=== PATIENT | male | born 1975 | race Two or more races ===

== ENCOUNTER 2020-11-03 10:03 | Outpatient (REF) | payer OTHER, SELFPAY ==
--- NOTE | ~2020-11-03 | MR_ITS ---
MR ANGIOGRAPHY BRAIN WITHOUT CONTRAST CLINICAL INFORMATION: Family history of brain aneurysms. COMPARISON: MRA head 07/06/2018. TECHNIQUE: A noncontrast [id number]-nd-[id number] MRA of the head is obtained. Vascular post-processing, including 2-dimensional and 3-dimensional reformatted images were created and reviewed on an independent workstation under concurrent physician supervision. Stenoses are graded per criteria similar to NASCET. FINDINGS: The anterior and posterior intracranial arterial circulations are normal in caliber. No significant arterial stenoses and no acute arterial occlusions. No aneurysms and no high flow vascular malformations. MR/MR angio head wo con IMPRESSION: Unremarkable MRA of the head.
== END 2020-11-03 10:04 | disposition home or self-care (01) ==
LOC: HO.MRI 10:03
PROVIDERS: PCP Internal Medicine; Visit Provider Internal Medicine
DX: Z13.0 Encounter for screening for diseases of the blood and blood-forming organs and certain disorders involving the immune mechanism (principal); Z82.49 Family history of ischemic heart disease and other diseases of the circulatory system
CPT/HCPCS: 70544

== ENCOUNTER → 2021-02-09 09:03 | Outpatient (BNVA) | payer OTHER, SELFPAY | PROVIDERS: PCP Internal Medicine; Referring Provider Internal Medicine; Visit Provider Surgery ==

== ENCOUNTER 2021-03-09 08:04 | Outpatient (REF) | payer OTHER, SELFPAY ==
[2021-03-09 08:12] VITALS: BP 125/81; PULSE 68; RESP 16; TEMP 36.6; O2SAT 98
[2021-03-09 08:19] VITALS: BMI 30.4
[2021-03-09 08:28] VITALS: BP 120/78; PULSE 69; RESP 16; O2SAT 96
--- NOTE | 2021-03-12 16:22 | P.OP_ITS ---
Operative Note Operative Note Date of Service: 03/09/21 Narrative: Preoperative diagnosis: Pilar cyst left scalp Postoperative diagnosis: Same Procedure: Excision of Pilar cyst left scalp Surgeon: Aniceto Jiang MD Lead Pressman [employer] Printing: No physician Anesthesia: Local Indications for procedure: 45-year-old male patient presenting with an enlarging Pilar cyst left scalp Operative findings: 1.5 cm Pilar cyst left scalp Specimen: Pilar cyst left scalp Estimated blood loss: 2 mL Complications: None Procedure details: Patient was brought to the OR and placed in a supine position with head turned to the right. The site of surgery was confirmed by the patient in the left scalp just above the ear. After assuring informed consent the skin was prepped with Betadine and draped in a sterile fashion. Local anesthesia consisting 1% lidocaine with epinephrine was then infiltrated in a transverse fashion directly over the skin lesion. Incision was then made with a scalpel carried out through subcutaneous tissue and up to the cyst wall. A hemostat was then used to gently dissect around the lesion within the subcutaneous tissue. The cyst was completely removed and sent to pathology intact for further examination. Hemostasis was assured using light pressure. Skin was then closed using interrupted 3-0 Prolene sutures. Bacitracin was applied to the incision. The patient tolerated the procedure well. He was subsequently discharged to home in stable condition.
== END 2021-03-09 08:05 | disposition home or self-care (01) ==
LOC: HO.MS 08:04
PROVIDERS: PCP Internal Medicine; Visit Provider Surgery
PROC: (CPT 11422; principal; 2021-03-09 08:00)
DX: L72.11 Pilar cyst (principal)
CPT/HCPCS: 11422; 88304

== ENCOUNTER → 2021-03-16 09:24 | Outpatient (BNVA) | payer OTHER, SELFPAY | PROVIDERS: PCP Internal Medicine; Referring Provider Internal Medicine; Visit Provider Surgery ==

== ENCOUNTER 2021-10-03 12:23 | Outpatient (REF) | payer OTHER, SELFPAY ==
[2021-10-08 14:11] LABS: FIT Int Ctl YES; FIT1 NEGATIVE (NEGATIVE); FIT2 NEGATIVE (NEGATIVE)
== END 2021-10-03 12:24 | disposition home or self-care (01) ==
LOC: HO.LNP 12:23
PROVIDERS: Visit Provider Nurse Practitioner
DX: Z01.818 Encounter for other preprocedural examination (principal); K92.1 Melena
CPT/HCPCS: 82274

== ENCOUNTER 2022-03-08 08:56 | Day surgery (SDC) | payer OTHER, SELFPAY ==
--- NOTE | 2022-03-07 12:53 | P.CONAN_ITS ---
Documented by User: Jenise Be NP 03/07/22 12:54 HPI - Anesthesia Eval Consult details Narrative: 46yo M for Colonoscopy [facility] Active Problems Active Problems: All Active Problems (Updated 03/05/22 @ 13:29 by Uyen Ramirez RN) Pilar cyst of scalp (Acute) Overweight (Acute) GERD (gastroesophageal reflux disease) (Acute) Black stools (Acute) Pre-op examination (Acute) Past Medical History Medical History GERD (gastroesophageal reflux disease) Surgical History Surgical History History of oral surgery History of surgical removal of pilonidal cyst Social History Social History (Updated 09/28/21 @ 11:11 by Magy Williamson) Alcohol intake: current Alcohol intake frequency: holidays/special occasions only Patient Tobacco Use Status: Never used Tobacco Are you DNR?: No Advance Directives: No Advance Directives Information Provided: Yes Nutrition Risks: No Nutritional Risk Meds Allergies Allergy/AdvReac Type Severity Reaction Status Date / Time shellfish derived Allergy Severe hives Verified 03/08/22 09:00 Home Medications Medication Instructions Recorded Confirmed Last Taken Type cholecalciferol (vitamin D3) 50 50 mcg PO DAILY 09/28/21 03/05/22 Unknown History mcg (2,000 unit) capsule multivitamin 1 tab PO DAILY 09/28/21 03/05/22 Unknown History Exam Exam Date and Time: March 07, 2022 1253 Assessment and Plan Assessment Anesthesia Assessment: Chart Reviewed Documented by User: Bryce Dennison MD 03/08/22 09:40 [facility] Past Medical History Medical History GERD (gastroesophageal reflux disease) Family History Family history of problems with anesthesia: No Surgical History Surgical History History of oral surgery History of surgical removal of pilonidal cyst History of Problems with Anesthesia: No Social History Social History (Updated 09/28/21 @ 11:11 by Magy Williamson) Alcohol intake: current Alcohol intake frequency: holidays/special occasions only Patient Tobacco Use Status: Never used Tobacco Are you DNR?: No Advance Directives: No Advance Directives Information Provided: Yes Nutrition Risks: No Nutritional Risk Meds Allergies Allergy/AdvReac Type Severity Reaction Status Date / Time shellfish derived Allergy Severe hives Verified 03/08/22 09:00 Home Medications Medication Instructions Recorded Confirmed Last Taken Type cholecalciferol (vitamin D3) 50 50 mcg PO DAILY 09/28/21 03/05/22 Unknown History mcg (2,000 unit) capsule multivitamin 1 tab PO DAILY 09/28/21 03/05/22 Unknown History Exam Airway Mallampati Class: II TM Dist: >3cm Heart: rrr Lungs: cta Assessment and Plan Assessment Anesthesia Assessment: Anesthesia Plan Discussed Final Anesthetic Review Family History of Problems with Anesthesia: No History of Problems with Anesthesia: No NPO: Yes ASA Class: II Final Preanesthetic Review: No Changes in Pt Med Stat, Meds/Allgs Chart Reviewed, Consent Obtained/Reviewed and Anes Risks/Benef Reviewed Patient Risk: Low Procedure Risk: Low Anesthetic Plan Anesthetic Plan: MAC: and Agree w/ Assess. and Plan Disposition: Standard PACU
[2022-03-08 09:01] VITALS: BMI 29.2
[2022-03-08] MEDS: Lactated Ringers 1,000 ML 100 ML IVCONT (09:01)
[2022-03-08 09:25] VITALS: BP 142/86; PULSE 81; RESP 18; TEMP 36.6; O2SAT 97
--- NOTE | 2022-03-08 09:26 | PC.NURSE ---
requested for dr. valadez to assess patient due to note below. dr. valadez speaking with dr. last. Dr. Doshi's patient, Herberth Mazariegos, is here for a colonoscopy. Stated he went to urgent care on Friday for c/o cough and runny nose with yellow discharge. Waking hiimself up at night during this week, bc he feels as if he is trying to catch his breath. No antibiotic was given. Afebrile here. LCTA. No cough noted here, but voice sounds congested. Stated was flu/covid/strep swabbed and were all negative.
--- NOTE | 2022-03-08 09:39 | PC.NURSE ---
Dr. Alaniz, Dr. Doshi and Dr. Dennison assessed patient and decision was made that it is okay to proceed.
--- NOTE | 2022-03-08 10:32 | MHC.SHP ---
Pre-Procedural Eval Section A Date of Service: 03/08/22 The patient is an INPATIENT: No The History & Physical has been completed within 30 days and I have reviewed it.: No Section B Chief Complaint: screening constipation Details of Present Illness: Colon cancer screening, chronic constipation Relevant Family History (Specify if Yes): No Relevant Social History: None Present Medications: see Short Stay Collaborative assessment Medical History: Significant History (Asthma - pt denies Overweight GERD) History of Previous Operations: Relevant previous surgery/procedure and date(s) (History of oral surgery History of surgical removal of pilonidal cyst) Allergies: Allergies Allergy/AdvReac Type Severity Reaction Status Date / Time shellfish derived Allergy Severe hives Verified 03/08/22 09:00 Review of Systems Sugical H&P ROS: Negative: Constitution, Cardiovascular and Respiratory and Yes, Specify: Gastrointestinal (constipation) Exam Surgical H&P Exam: Normal: Heart, Normal: Lungs, Normal: Extremities and Normal: Abdomen Plan Diagnosis/Plan: Unchanged I have reviewed the history and physical and performed a pertinent physical examination on my patient. No changes have occurred unless specified. Time Spent With Patient Time: Total time managing care of this patient today ____ minutes.
--- NOTE | 2022-03-08 10:39 | P.BOP_ITS ---
Brief Operative Note Date of Service: 03/08/22 Pre-op diagnosis: Colon cancer screening (1st colonoscopy), chronic constipation Post-op diagnosis: other (COLON POLYP, DIVERTICULOSIS, HEMORRHOIDS) Procedure: COLONOSCOPY TO CECUM WITH BIOPSIES Surgeon: Huber Doshi MD Anesthesia: MAC Was an Retail Asset Protection Specialist used for this Procedure?: Yes Retail Asset Protection Specialist: Mitchell Ferrer Estimated blood loss (mL): 0 Pathology: other ( A- RECTAL POLYP) Condition: stable Disposition: PACU
--- NOTE | 2022-03-08 10:39 | W.PM.OPN ---
Operative Note Operative Note Date of Service: 03/08/22 Narrative: Pre-op diagnosis: Colon cancer screening (1st colonoscopy), chronic constipation Post-op diagnosis:?other (COLON POLYP, DIVERTICULOSIS, HEMORRHOIDS) Surgeon: Huber Doshi MD Anesthesia:?MAC COLONOSCOPY TILL CECUM WITH BIOPSIES Consent: Indications for the procedure and potential complications of bleeding, perforation, reaction to medications and missed diagnosis were discussed with the patient and informed consent was obtained. Instrument: Olympus PCF H 190 L variable stiffness pediatric colonoscope Monitoring: Vital signs and clinical assessment, intermittent blood pressure monitoring, continuous EKG monitoring, Pulse oximetry and Carbon Dioxide monitoring were done throughout the procedure. Colon withdrawl time was 20 minutes. Procedure: The patient was placed in the left lateral decubitis position and pre-procedure medications were administered. After a digital rectal examination of the ano-rectum, the video colonoscope was inserted into the rectum and advanced through the colon to the cecum. The colonoscope was slowly withdrawn in a retrograde panoramic fashion and the colon mucosa was carefully examined including a retroflexed view of the rectum. Findings and interventions are described below. Procedure Difficulty: Without difficulty Findings: Terminal Ileum: Not evaluated Cecum: Normal Ascending Colon: Normal Transverse Colon: Normal Descending Colon: Moderate diverticulosis Sigmoid Colon: Moderate diverticulosis Rectum: A 3-4 mm diminutive appearing polyp - removed with a cold bx Ano-rectum: Large nonbleeding internal hemorrhoids Colon preparation: Excellent Impression and Post Procedure Diagnosis: Colonoscopy Findings: One diminutive appearing polyp removed Moderate diverticulosis seen in the left colon Large nonbleeding hemorrhoids on retroflexed exam. Plan: Await pathology results Patient has an appointment on 03/22/22 in the GI Clinic with Ninfa Bledsoe NP. Repeat Colonoscopy interval based on path results - in 5 years if polyps are adenomatous and 10 years if polyps are hyperplastic. Above findings were reviewed with the patient and colon polyps, Hemorrhoids and diverticulosis handouts were given in the discharge area
[2022-03-08 11:22] VITALS: BP 93/54; PULSE 72; RESP 16; TEMP 36.4; O2SAT 96
[2022-03-08 11:36] VITALS: BP 99/63; PULSE 93; RESP 16; O2SAT 97
[2022-03-08 11:51] VITALS: BP 110/73; PULSE 80; RESP 16; TEMP 36.4; O2SAT 97
== END 2022-03-08 12:15 | disposition home or self-care (01) ==
PROVIDERS: Visit Provider Internal Medicine Gastroenterology
PROC: 0DJD8ZZ Inspection of Lower Intestinal Tract, Via Natural or Artificial Opening Endoscopic (ICD-10-PCS; CPT 45378; principal; 2022-03-08 10:00)
DX: Z12.11 Encounter for screening for malignant neoplasm of colon (principal); K62.1 Rectal polyp; K57.30 Diverticulosis of large intestine without perforation or abscess without bleeding; K64.8 Other hemorrhoids; K59.09 Other constipation; K21.9 Gastro-esophageal reflux disease without esophagitis; E66.3 Overweight; Z68.29 Body mass index [BMI] 29.0-29.9, adult
CPT/HCPCS: 45380; 88305

== ENCOUNTER 2022-04-29 16:39 | Outpatient (REF) | payer OTHER, SELFPAY ==
--- NOTE | ~2022-04-29 | XR_ITS ---
EXAMINATION: XR CHEST 2 VIEWS CLINICAL INFORMATION: History of tuberculosis. COMPARISON: Chest radiographs dated 05/25/2018. TECHNIQUE: Frontal and lateral views of the chest were obtained. FINDINGS: The heart, great vessels, pulmonary vasculature and mediastinum are normal. The lungs show no focal infiltrate, effusion or pneumothorax. No mass, nodule or thoracic lymphadenopathy is seen. There is no acute osseous abnormality. XR/XR chest 2V IMPRESSION: No active cardiopulmonary disease.
== END 2022-04-29 16:40 | disposition home or self-care (01) ==
LOC: HO.XRAY 16:39
PROVIDERS: Visit Provider Registered Nurse
DX: Z86.11 Personal history of tuberculosis (principal)
CPT/HCPCS: 71046

== ENCOUNTER 2022-10-15 10:31 | Outpatient (REF) | payer OTHER, SELFPAY ==
[2022-10-15 11:20] LABS: MANUAL DIFF FLAG NO
[2022-10-15 11:30] LABS: Basophils Percent Auto 0.7 % (0-2); Eosinophils Absolute Auto 0.5 X10*3/uL (0.0-0.4); Eosinophils Percent Auto 8.4 % (0-4); Hematocrit 42.3 % (42.0-52.0); Hemoglobin 14.8 g/dl (14.0-18.0); Imm Gran Abs Auto 0.01 X10*3/uL (0.00-0.03); Imm Gran Pct Auto 0.2 % (0.0-0.4); Lymphocytes Absolute Auto 2.2 X10*3/uL (1.2-4.9); Lymphocytes Percent Auto 39.3 % (20-40); Mean Corpuscular Hemoglobin 30.8 pg (27.0-33.0); Mean Corpuscular Volume 87.9 fL (80.0-98.0); Monocytes Absolute Auto 0.4 X10*3/uL (0.1-1.2); Neutrophils Absolute Auto 2.4 x10*3/uL (2.0-8.3); Neutrophils Percent Auto 43.4 % (45-73); Platelet Count 283 X10*3/uL (160-400); Red Blood Count 4.81 X10*6/uL (4.60-5.80); Red Cell Distribution Width 12.6 % (11.0-16.0); White Blood Count 5.5 X10*3/uL (4.8-10.8)
[2022-10-15 12:12] LABS: Anion Gap 9 (12-20); Blood Urea Nitrogen 20 mg/dL (9-16); Calcium 9.5 mg/dL (8.4-10.2); Carbon Dioxide 28 mmol/L (22-29); Chloride 106 mmol/L (96-108); Estimated Glomerular Filt Rate > 60; Glucose Random 84 mg/dL (60-115); Potassium 3.4 mmol/L (3.3-5.1); Sodium 140 mmol/L (135-145)
== END 2022-10-15 10:32 | disposition home or self-care (01) ==
LOC: HO.HHCL 10:31
PROVIDERS: Visit Provider Internal Medicine Geriatric Medicine
DX: R10.31 Right lower quadrant pain (principal)
CPT/HCPCS: 36415; 80048; 85025

== ENCOUNTER 2023-03-10 07:20 | Outpatient (REF) | payer OTHER, SELFPAY ==
--- NOTE | ~2023-03-10 | CT_ITS ---
EXAMINATION: CT ABDOMEN AND PELVIS WITH CONTRAST CLINICAL INFORMATION: Right lower quadrant pain. COMPARISON: None available. TECHNIQUE: Multidetector volumetric images were obtained from the superior aspect of the liver through the pubic symphysis following administration 85 mL of Omnipaque 350 intravenous contrast. Sagittal and coronal reformatted images were obtained on the technologist's workstation. Oral contrast: No This CT examination was performed using dose optimization techniques as appropriate, variously including the following: *Automated exposure control *Adjustment of mA and/or kV according to patient size (this includes techniques or standardized protocols for targeted exams where dose is matched to indication/reason for exam; i.e. extremities or head) *Use of iterative reconstruction technique DLP: 446 mGy-cm FINDINGS: LUNG BASES: There is a 2 mm pulmonary nodule in the left lower lobe, for which no imaging follow-up is recommended according to the Fleischner Society guidelines. No focal consolidation or pleural effusion. LIVER, GALLBLADDER, AND BILIARY TREE: The liver is normal in size, shape, and attenuation. No focal hepatic lesion or biliary ductal dilatation is present. The gallbladder is unremarkable with no evidence of radiopaque gallstones, gallbladder wall thickening, or obvious pericholecystic inflammatory changes. PANCREAS: Unremarkable. SPLEEN: Unremarkable. ADRENAL GLANDS: Unremarkable. KIDNEYS AND URETERS: The kidneys are normal in size, shape, and attenuation. No hydronephrosis, hydroureter, or calculi seen. No perinephric stranding. BLADDER: Partially under distended limiting assessment wall thickening. No intraluminal calculi. No perivesical inflammatory changes. GASTROINTESTINAL TRACT: The stomach and the small bowel are nondilated. Normal appendix. No pericolonic inflammatory changes. No evidence of bowel obstruction. ABDOMINAL WALL: No significant hernia is appreciated. LYMPH NODES: No lymphadenopathy. VASCULAR: Normal caliber abdominal aorta. PELVIC VISCERA: Unremarkable. OSSEOUS STRUCTURES: Unremarkable. CT/CT abdomen pelvis w IV con IMPRESSION: No acute intra-abdominal or pelvic abnormalities to explain the patient's symptoms. Fleischner guidelines were followed.
[2023-03-10] MEDS: iohexoL 350 MG/ML 75 ML INFUS..BTL 85 ML IV (09:48)
[2023-03-10] MEDS: Barium Sulfate Oral (Berry) 450 ML ORAL.SUSP 900 ML PO (09:48)
== END 2023-03-10 07:21 | disposition home or self-care (01) ==
LOC: HO.CT 07:20
PROVIDERS: Visit Provider Internal Medicine Geriatric Medicine
DX: R10.31 Right lower quadrant pain (principal)
CPT/HCPCS: 74177; Q9967

== ENCOUNTER 2023-12-02 08:42 | Outpatient (REF) | payer OTHER, SELFPAY ==
--- NOTE | ~2023-12-02 | XR_ITS ---
EXAMINATION: XR KNEE, LEFT CLINICAL INFORMATION: left knee pain COMPARISON: None available. TECHNIQUE: AP and lateral views of the left knee. FINDINGS: Normal alignment. No fracture. No joint effusion. No joint space narrowing. There is an enthesophyte at the tibial tubercle. XR/XR knee LT 2V IMPRESSION: 1. No acute osseous abnormality. 2. Enthesophyte at the tibial tubercle. Electronically signed by: Josh Josue MD 12/02/2023 10:26 AM EDT
[2023-12-02 12:53] LABS: HIV AB/AG Nonreactive (Nonreactive); HIV Num 1 0.12 S/CO (0.00-0.99); ~HepC Num1 0.16 S/CO (0.00-0.79); ~Hepatitis C Antibody Nonreactive (Nonreactive)
[2023-12-02 12:55] LABS: Syphilis Screen Nonreactive (Nonreactive)
[2023-12-02 13:13] LABS: CT PCR NOT DETECTED (Not Detect.); NG PCR NOT DETECTED (Not Detect.)
== END 2023-12-02 08:43 | disposition home or self-care (01) ==
LOC: HO.HHCL 08:42
PROVIDERS: Visit Provider Internal Medicine
DX: A60.01 Herpesviral infection of penis (principal); M25.562 Pain in left knee
CPT/HCPCS: 36415; 73560; 86780; 86803; 87389; 87491; 87591

== ENCOUNTER 2023-12-29 09:43 | Outpatient (AMB) | payer OTHER, SELFPAY ==
--- NOTE | 2023-12-29 09:52 | A.OFFVIS_ITS ---
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 Patient reports his pain has been present for a little over a month. Denies traumatic injury however believes his symptoms could be from weight lifting. No previous tx. He has shooting pain at the lateral aspect and with lifting his pain radiates up his leg. States hearing a ripping in his knee. His knee yesterday was warm to the touch after knee exercises. Allergies shellfish derived Allergy (Severe, Verified 12/29/23 09:56) hives Medication List - Last Reconciled 12/29/23 by Yeny Hardin PA-C cholecalciferol (vitamin D3) 50 mcg PO DAILY multivitamin 1 tab PO DAILY HPI HPI SPORTS DIRECTOR Lt knee pain: Details: 48-year-old male who presents to the office today for an evaluation of left knee pain. He states he has pain in his left knee that is aggravated with lifting, squatting and stairs. He denies pain with twisting or pivoting. No injury to date. [facility] Medical History (Updated 12/29/23 @ 10:14 by Yeny Hardin PA-C) GERD (gastroesophageal reflux disease) Surgical History History of surgical removal of pilonidal cyst History of oral surgery Social History (Updated 12/29/23 @ 09:57 by DARRELL Bruno) Alcohol intake: current Alcohol intake frequency: holidays/special occasions only Patient Tobacco Use Status: Never used Tobacco Current occupational status: employed Current occupation: local combination truck driver Review of Systems Const All systems reviewed & are unremarkable except as noted in HPI and below Physical Exam Vital Signs: BMI result Body Mass Index 29.3 Const General: cooperative and no acute distress Orientation/consciousness: patient oriented x3 Resp Effort & Inspection: normal respiratory effort and able to speak in complete sentences Cardio Peripheral pulses: Peripheral pulses 2+ throughout Neuro General: patient oriented x3 Extrem Other: Left knee: Skin intact, no erythema or joint effusion. Lateral retropatellar tenderness present. Full ROM with crepitus. Negative Cherelle?s. No ligamentous laxity. NVI. Results Reviewed Results Reviewed: Xrays were obtained in the office today and personally reviewed by me of the left knee show well preserved joint space. Assessment & Plan Assessment & Plan (1) Patellofemoral arthritis of left knee: Code(s): M17.12 - Unilateral primary osteoarthritis, left knee Category: Medical Plan: We discussed options which include PT, NSAIDs and injections. The patient will defer on the injection today and proceed with PT and NSAIDs. He was also fit for a Genumed knee brace in the office today. If symptoms persist, she will contact me for an injection, otherwise, PRN.? Orders: Orders PT Evaluation and Treatment Today M17.12 - Unilateral primary osteoarthritis, left knee XR knee LT 1V Today M25.562 - Pain in left knee Coding Level of Care Code New Pt Level 3 (52798) Complex EM visit Add On G2211 Diagnoses Patellofemoral arthritis of left knee M17.12
[2023-12-29 09:55] VITALS: BMI 29.3
== END 2023-12-29 10:42 | disposition home or self-care (01) ==
LOC: HO.HOS 09:43
PROVIDERS: PCP Internal Medicine; Visit Provider Physician Assistant
DX: M17.12 Unilateral primary osteoarthritis, left knee (principal)
CPT/HCPCS: 99203

== ENCOUNTER 2023-12-29 09:56 | Outpatient (REF) | payer OTHER, SELFPAY ==
--- NOTE | ~2023-12-29 | XR_ITS ---
EXAMINATION: XR KNEE LEFT CLINICAL INFORMATION: Pain in left knee M25.562. COMPARISON: XR Left knee 12/02/2023. TECHNIQUE: One view of the left knee. FINDINGS: No fracture or joint effusion. Alignment is anatomic. Joint spaces are maintained. No abnormal soft tissue calcification. XR/XR knee LT 1V IMPRESSION: Normal left knee. Electronically signed by: Otoniel York MD 02/05/2024 09:55 AM [facility]
== END 2023-12-29 09:57 | disposition home or self-care (01) ==
LOC: HO.HOSX 09:56
PROVIDERS: Visit Provider Physician Assistant
DX: M25.562 Pain in left knee (principal)
CPT/HCPCS: 73560

== ENCOUNTER 2024-01-12 16:04 | Outpatient (REF) | payer OTHER, SELFPAY ==
--- NOTE | ~2024-01-12 | US_ITS ---
EXAMINATION: US extremity nonvascular CLINICAL INFORMATION: left knee pain COMPARISON: None. TECHNIQUE: Real-time linear grayscale sonographic exam of the area of concern, left knee. FINDINGS/ US/US extremity nonvascular IMPRESSION: No abnormality identified. No fluid collection, free fluid, lymph node or mass. Normal cutaneous, subcutaneous, muscular and fascial planes identified. Electronically signed by: Ludmila Mederos DO 01/13/2024 09:08 AM [facility] [place]
== END 2024-01-12 16:05 | disposition home or self-care (01) ==
LOC: HO.US 16:04
PROVIDERS: Visit Provider Internal Medicine
DX: M25.562 Pain in left knee (principal)
CPT/HCPCS: 76882

== ENCOUNTER 2024-12-08 08:07 | Outpatient (REF) | payer OTHER, SELFPAY ==
[2024-12-08 11:13] LABS: MANUAL DIFF FLAG NO
[2024-12-08 11:27] LABS: Hematocrit 43.2 % (42.0-52.0); Hemoglobin 15.1 g/dl (14.0-18.0); Imm Gran Abs Auto 0.02 X10*3/uL (0.00-0.03); Imm Gran Pct Auto 0.3 % (0.0-0.4); Lymphocytes Absolute Auto 2.0 X10*3/uL (1.2-4.9); Mean Corpuscular HGB Conc 35.0 g/dl (31.0-36.0); Mean Corpuscular Hemoglobin 31.5 pg (27.0-33.0); Mean Corpuscular Volume 90.0 fL (80.0-98.0); NRBC Abs Auto 0.000 X10*3/uL (0.0-0.012); NRBC Pct Auto 0.0 /100WBC (0.0-0.2); Platelet Count 299 X10*3/uL (160-400); Red Blood Count 4.80 X10*6/uL (4.60-5.80); White Blood Count 7.3 X10*3/uL (4.8-10.8)
[2024-12-09 04:17] LABS: Syphilis Screen Nonreactive (Nonreactive)
== END 2024-12-08 08:08 | disposition home or self-care (01) ==
LOC: HO.HHCL 08:07
PROVIDERS: PCP Nurse Practitioner; Visit Provider Nurse Practitioner
DX: L95.9 Vasculitis limited to the skin, unspecified (principal)
CPT/HCPCS: 36415; 84443; 85025; 86780